=== PATIENT | male | born 1995 | race Caucasian/White ===

== ENCOUNTER 2022-01-31 01:43 | Day surgery (SDC) | payer OTHER, SELFPAY ==
[2022-01-16 11:57] VITALS: BMI 33.5
[2022-01-31 10:40] VITALS: BP 147/73; PULSE 91; RESP 18; TEMP 36.6; O2SAT 97; BMI 33.3
[2022-01-31] MEDS: LACTATED RINGERS 1,000 ML 150 ML IV CONT (11:00)
--- NOTE | 2022-01-31 11:09 | WPDANESEPPF ---
Anes - Initial Pre Proc Eval Procedure: Operation Date: 01/31/22 12:30 Proposed Procedures p Colonoscopy - Rocky Arzate MD Date/Time: 01/31/22 11:09 Surgeon: Rocky Arzate MD Pre Op Diagnosis: blood in stool Patient Data Age: 26 Gender: M Height: 1.83 m Weight: 111.4 kg Last Vital Signs Temp 36.6 C 01/31/22 10:40 Pulse 91 01/31/22 10:40 Resp 18 01/31/22 10:40 BP 147/73 H 01/31/22 10:40 Pulse Ox 97 01/31/22 10:40 O2 Del Method Room Air 01/31/22 10:40 Allergies Allergy/AdvReac Type Severity Reaction Status Date / Time No Known Drug Allergies Allergy Unknown Other Verified 01/31/22 10:48 Patient hx anesthesia problems: none Family hx anesthesia problems: none Results Review: All pre-operative results and documents have been reviewed as part of the pre-operative evaluation. [facility] Past Medical History Medical History (Updated 01/31/22 @ 11:09 by Satish Carr MD) Obesity Surgical History Surgical History (Updated 01/31/22 @ 11:09 by Satish Carr MD) H/O arthroscopic knee surgery Social History Social History Smoking status: Never smoker Alcohol intake: current Alcohol use details: on occasion Substance use: current Substance use type: marijuana Other substance usage details: THC cream for knee Living arrangements: with family Spiritual care concerns: No Anes - Eval Final PreProcedure Day of Procedure 01/31/22 11:09 Patient weight: obese Heart: regular rate and rhythm Lungs: clear to auscultation Airway: Mallampati scale class II Last oral intake: >/= 8 hours ASA classification: II Emergent: no Anesthetic plan: proceed Anesthesia type and monitoring: general GIVS and standard monitoring Results Review: All pre-operative results and documents have been reviewed as part of the pre-operative evaluation. Informed Consent: The patient's anesthetic plan and its attendant risks and benefits were discussed with the patient/family/POA. Questions were solicited and answers provided to the satisfaction of the patient/family/POA.
--- NOTE | 2022-01-31 11:35 | P.HP_ITS ---
History of Present Illness History of Present Illness Consent: Risks, benefits, and alternatives have been discussed and questions answered. Patient agrees to proceed with procedure. Chief complaint: blood in stool Narrative: Aguilar Vu is a 26 year old male Presents for colonoscopy. Patient reports over the last 6 months he has noticed intermittent bright red blood per rectum. Typically bright red. Often with wiping sometimes on the outside of stools. Over the last 3-4 months he has had anal leakage in seepage. This does not appear to be bloody. He typically will have several bowel movements a day but sometimes only 1 and sometimes less frequent than that. His stools are sometimes softer recently. Patient denies any abdominal pain. Occasionally has rectal discomfort. He has not tried any specific therapy at this date. His family history is significant his grandmother had colon cancer. Patient referred today for colonoscopy. Review of Systems Review of Systems: Review of systems noncontributory. [facility] Past Medical History Medical History (Updated 01/31/22 @ 11:36 by Rocky Arzate MD) Obesity Surgical History Surgical History (Updated 01/31/22 @ 11:09 by Satish Carr MD) H/O arthroscopic knee surgery Social History Social History Smoking status: Never smoker Alcohol intake: current Alcohol use details: on occasion Substance use: current Substance use type: marijuana Other substance usage details: THC cream for knee Living arrangements: with family Spiritual care concerns: No Meds Home Medications and Allergies Allergies Allergy/AdvReac Type Severity Reaction Status Date / Time No Known Drug Allergies Allergy Unknown Other Verified 01/31/22 10:48 Vital Signs Vital Signs - 24 hr 01/31/22 10:40 Temperature 97.8 F Pulse Rate 91 Respiratory Rate 18 Blood Pressure 147/73 H Pulse Oximetry 97 Oxygen Delivery Room Air Exam Narrative: Physical exam reveals patient be alert. Vital signs stable. MARY LOU NT exam is unremarkable. Patient is anicteric. Lungs are clear to auscultation and percussion. Heart is without murmur or extra sounds. Abdomen bowel sounds present soft nontender with no organomegaly. Digital external rectal exam normal. Assessment and Plan Assessment and plan (1) Blood in stool: Code(s): K92.1 - Melena Status: Acute Assessment and Plan: Patient gives a history of blood in his stools over last 3-4 months. Anal seepage during similar time frame. Plan is for colonoscopy. Patient may benefit from fiber supplementation to bulk up his stools. Further recommendations will be given after endoscopy.
[2022-01-31] MEDS: SIMETHICONE ORAL SUSPENSION 20 MG/0.3 ML 30 ML BOTTLE 0.6 ML IRRIGATION (12:29)
[2022-01-31 12:38] VITALS: BP 113/78; PULSE 75; RESP 20; O2SAT 94
[2022-01-31 12:48] VITALS: BP 125/84; PULSE 72; RESP 19; O2SAT 96
[2022-01-31 12:58] VITALS: BP 127/95; PULSE 67; RESP 21; O2SAT 96
== END 2022-01-31 13:03 | disposition home or self-care (01) ==
PROVIDERS: PCP Family Medicine; Visit Provider Internal Medicine Gastroenterology
PROC: 0DJD8ZZ Inspection of Lower Intestinal Tract, Via Natural or Artificial Opening Endoscopic (ICD-10-PCS; CPT 45378; principal; 2022-01-31 12:30)
DX: K62.5 Hemorrhage of anus and rectum (principal); D12.3 Benign neoplasm of transverse colon; K64.8 Other hemorrhoids; E66.9 Obesity, unspecified; Z68.33 Body mass index [BMI] 33.0-33.9, adult
CPT/HCPCS: 45385; 88305; J2001; J2704; J7120

== ENCOUNTER 2023-06-24 18:43 | Emergency (ER) | payer BC, SELFPAY ==
[2023-06-24] VITALS (8 sets, daily range): BP systolic 136–165; BP diastolic 88–112; PULSE 76–108; RESP 13–20; TEMP 36.3; O2SAT 94–98
--- NOTE | ~2023-06-24 | XR_ITS ---
EXAMINATION: XR chest 2V Exam Date/Time: 06/24/2023 19:00 CDT HISTORY: chest pain, SOB Comparison: 04/20/2016. RESULT: Lines, tubes, and devices: None. Lungs and pleura: Clear. Cardiomediastinal silhouette: Stable. Other: No acute osseous or upper abdominal finding. IMPRESSION: No acute cardiopulmonary process. Reviewed, dictated and finalized at location K.
--- NOTE | ~2023-06-24 | CT_ITS ---
EXAMINATION: CTA chest PE protocol DATE: 06/24/2023 19:48 INDICATION: L sided cp, palpitations, sob, r/o PE TECHNIQUE: Computed tomography angiography (CTA) of the chest was performed with 100 mL Omnipaque-350 intravenous contrast timed to evaluate the pulmonary arteries. Coronal maximum intensity projection 3D-reconstructions were created by the technologist. The dose-length product (DLP) was 959.58 mGy-cm. Automated exposure control and iterative reconstruction technique were employed. COMPARISON: X-ray chest, same date. FINDINGS: Lung parenchyma and airways: Mild dependent atelectasis. Patent airways. Pleura: Unremarkable. Thoracic inlet, axillae and chest wall: Unremarkable. Thoracic aorta: No significant dilation. No dissection. Mediastinum: Normal. Heart and pericardium: Normal. Coronary artery calcifications: Absent. Upper abdomen: No significant finding. Bones: No acute osseous finding. Pulmonary arteries: Study quality: Adequate. No pulmonary emboli detected. IMPRESSION: No CT evidence of acute pulmonary embolus. No acute process detected in the chest. Reviewed, dictated and finalized at location K.
--- NOTE | 2023-06-24 18:44 | ECG_ITS ---
Measurements Intervals [place] Rate: 106 P: 22 PA: 139 QRS: 72 QRSD: 109 T: 43 QT: 337 QTc: 448 Interpretive Statements SINUS TACHYCARDIA MINIMAL Q WAVES- INFERIOR LEADS BASELINE ARTIFACT- I, II, III, AVR, AVL, AVF ABNORMAL ECG NO PREVIOUS ECG AVAILABLE FOR COMPARISON Electronically Signed On 06-24-2023 19:33:47 CDT by Devin Schwraz D.O.
--- NOTE | 2023-06-24 18:53 | ED.CHESTPAIN ---
HPI - Chest Pain General Chief Complaint: Chest Pain Stated Complaint: chest pain Time Seen by Provider: 06/24/23 18:46 Source: patient Mode of arrival: ambulatory Limitations: no limitations History of Present Illness HPI narrative: Patient is a 28-year-old male presents to ED with report of CP. Patient reports he was sitting at his desk approximately 1.5 hours ago when he suddenly began having pain in his left-sided chest. Describes it as a crushing and tightness sensation. Reports intermittent radiation of the pain down his left arm. Denies radiation to back, neck, jaw. Pain has been constant since the onset. States pain continued to worsen, which prompted his presentation. No aggravation with exertion. Does report hx of similar pain daily over the last 3 weeks, reports aggravation with stress. No alleviating factors. Reported mild shortness breath initially with chest pain today, states this has resolved currently. Denies abdominal pain, nausea, vomiting, fevers, cough or cold symptoms, lower extremity pain or swelling. Patient denies previous history of heart disease. Denies history of hypertension, hyperlipidemia, smoking. Reports family history of heart disease in his father and more distant relatives. States he was evaluated at [facility] ED a few weeks ago for similar CP and had a negative work-up. He is scheduled to see Dr. Turk with Cardiology on 07/10/23. Related Data Home Medications Medication Instructions Recorded Confirmed No Home Medications 05/30/23 Allergies Allergy/AdvReac Type Severity Reaction Status Date / Time prednisone Allergy Intermediate Other Verified 05/30/23 13:04 Review of Systems Review of Systems: CONSTITUTIONAL: Denies fever, chills, or sweats. CARDIOVASCULAR: See HPI. RESPIRATORY: See HPI. GASTROINTESTINAL: Denies abdominal pain, nausea, vomiting MUSCULOSKELETAL: Denies back pain, extremity pain, myalgia. NEUROLOGIC: Denies headache, dizziness, numbness, or weakness. All systems reviewed & are unremarkable except as noted in HPI and below PMFSH Past Medical History Medical History Asthma Osteochondritis dissecans Surgical History Surgical History H/O arthroscopic knee surgery left cadaver allograft 04/20/2012 repeat surgeries 04/2011 X2, 06/2011 Family History Family History Father Hypertension Hyperlipidemia Mother No problems noted. Grandparent Heart disease Hypertension Seizure disorder Peripheral artery disease Social History Social History Smoking status: Never smoker Alcohol intake: current Alcohol use details: on occasion Substance use: current Substance use type: marijuana Other substance usage details: THC cream for knee Do You Feel Safe in your Home?: Yes Lack of Transportation: No Lack of Food: Sometimes True Current Housing: I Have Housing Concerned About Future Housing: No Difficulty Paying Gas/Electric Bills: No Difficulty Paying for Meds: No Currently Unemployed: No Education: Bachelor's Degree Difficulty w/ Childcare or Family Care: No Living arrangements: with family Occupation/Education: occupation Gender identity (if verbalized by the patient): Male Sexual Orientation (if Verbalized by the Patient): Straight or Heterosexual Spiritual care concerns: No Exam Narrative: GENERAL: Mildly anxious appearing, obese with BMI of 38.5, non-toxic, in no acute distress. HEAD: Normocephalic, atraumatic. RESPIRATORY: Airway patent, respirations mildly tachypneic. Clear to auscultation bilaterally, no rales, rhonchi, wheezing. No focal lung sounds. CARDIOVASCULAR: Borderline tachycardic with regular rhythm without murmurs, rubs, or gallops. Radial pu
[2023-06-24 18:57] LABS: Basophils Absolute Auto 0.1 K/mm3 (0.0-0.1); Basophils Percent Auto 0.6 % (0.2-1.2); Eosinophils Absolute Auto 0.1 K/mm3 (0-0.3); Eosinophils Percent Auto 1.3 % (0-4.4); Hematocrit 47.6 % (42.0-52.0); Immature Granulocyte Absolute 0.02 K/mm3 (0.00-0.031); Immature Granulocyte Percent A 0.2 % (0-0.5); Lymphocytes Absolute Auto 3.67 K/mm3 (0.9-3.2); Lymphocytes Percent Auto 40.6 % (18.3-44.2); Mean Corpuscular HGB Conc 33.6 g/dl (32-36); Mean Corpuscular Hemoglobin 30.5 pg (26-34); Mean Corpuscular Volume 90.7 fl (80-100); Mean Platelet Volume 8.7 fl (7.4-10.4); Monocytes Absolute Auto 0.9 K/mm3 (0.1-0.6); Monocytes Percent Auto 9.4 % (2.6-8.5); Neutrophils Absolute Auto 4.3 K/mm3 (1.3-6.7); Neutrophils Percent Auto 47.9 % (45.5-73.1); Platelet Count Result 347 k/mm3 (150-375); Red Blood Count 5.25 M/mm3 (4.6-6.20); Red Cell Distribution Width 12.1 % (11.5-14.5)
[2023-06-24 19:07] LABS: INR 0.8; Prothrombin Time 11.8 Seconds (11.1-14.7)
[2023-06-24 19:11] LABS: Alanine Aminotransferase 48 U/L (6-50); Alkaline Phosphatase 101 U/L (38-126); Anion Gap 10 mmol/L (8-16); Aspartate Amino Transferase 39 U/L (17-59); Bilirubin,Total 0.6 mg/dL (0.2-1.3); Blood Urea Nitrogen 15 mg/dL (9-20); Calcium 9.5 mg/dL (8.4-10.2); Carbon Dioxide 26 mmol/L (22-30); Chloride 106 mmol/L (98-107); Estimated CRCL calculation 134 ml/min; Estimated Glomerular Filt Rate > 60; Glucose 96 mg/dL (65-110); Lipase 222 U/L (23-300); Partial Thromboplastin Time 25.2 Seconds (22.3-36.8); Potassium 3.6 mmol/L (3.4-5.0); Sodium 142 mmol/L (137-145)
--- NOTE | 2023-06-24 19:19 | PC.NURSE ---
Patient states he has had abnormal rash on lower legs. Upon assessing patient has erythema on his lower leg. PMS intact. Patient also states that sometimes is legs go numb quickly. EDP RADHA Mays notified.
[2023-06-24 19:22] LABS: Troponin I < 0.012 ng/mL (0.000-0.034)
[2023-06-24 20:22] LABS: Magnesium 2.2 mg/dL (1.6-2.3)
--- NOTE | 2023-06-24 21:20 | ECG_ITS ---
Measurements Intervals [place] Rate: 81 P: 33 ID: 156 QRS: 76 QRSD: 108 T: 50 QT: 356 QTc: 413 Interpretive Statements SINUS RHYTHM WITH SINUS ARRHYTHMIA BASELINE ARTIFACT- I, II, III, AVR, AVL, AVF, V1 NORMAL ECG COMPARED TO ECG 06/24/2023 18:49:51 SINUS RHYTHM NOW PRESENT SINUS ARRHYTHMIA NOW PRESENT Electronically Signed On 06-25-2023 6:30:02 CDT by Devin Schwarz D.O.
[2023-06-24] MEDS: BELLADONNA ALK/PHENOB ELIX 10 ML, MAG HYDROX/ALUMINUM HYD/SIMETH 30 ML, LIDOCAINE HCL 2... PO (21:41)
[2023-06-24 22:12] LABS: Troponin I < 0.012 ng/mL (0.000-0.034)
== END 2023-06-24 23:06 | disposition home or self-care (01) ==
PROVIDERS: Student in an Organized Health Care Education/Training Program; Emergency Provider Physician Assistant; PCP Family Medicine
DX: R07.89 Other chest pain (principal)
CPT/HCPCS: 36415; 71046; 71275; 80053; 83690; 83735; 84484; 85025; 85610; 85730; 93005; 99284; A9270; Q9967